=== PATIENT | male | born 1945 | race Caucasian/White ===

== ENCOUNTER 2017-10-09 17:36 | Emergency (ER) | payer OTHER, BC ==
[~2017-10-09] VITALS: Ht 180.3 cm; Wt 67.7 kg
[~2017-10-09 17:36] MED LIST: Levaquin PO; Ultram PO; Zestoretic,Prinzide PO
[2017-10-09 19:42] LABS: HEMATOCRIT 40.7 % (38.0-50.0); MCH 33.4 PG (29.0-34.0); MCHC 36.6 G/DL (30.0-36.0); MCV 91.3 FL (86-99); MEAN PLAT.VOLUME 9.4 uM^3 (9.0-12.4); PLATELET COUNT 238 K/uL (156-360); RBC DIS.WIDTH-CV 13.9 % (11.8-14.6); RBC DIS.WIDTH-SD 47.1 % (39-53); RED BLOOD COUNT 4.46 M/uL (4.00-5.50); WHITE BLOOD COUNT 16.3 K/uL (4.1-10.2)
[2017-10-09 19:55] LABS: CHLORIDE 91 mEq/L (99-109); POTASSIUM 4.1 mEq/L (3.7-5.4); SODIUM 123 mEq/L (136-147)
[2017-10-09 19:57] LABS: GLUCOSE 111 mg/dL (70-99)
[2017-10-09 19:59] LABS: ANION GAP 12 MEQ/L (2-14); TOTAL BILIRUBIN 0.6 mg/dL (0.0-1.0)
[2017-10-09 20:01] LABS: ALKALINE PHOSPHATASE 58 IU/L (3-129); GFR ESTIMATE (CALCULATED) > 59 mL/min/ (58.99-99999)
[2017-10-09 20:02] LABS: UREA NITROGEN (BUN) 10 mg/dL (9-23)
[2017-10-09 20:03] LABS: TROP-I INTERPRETATION NEGATIVE; TROPONIN-I < 0.01 ng/mL (0.0-0.30)
[2017-10-09 20:05] LABS: LIPASE 22 U/L (1.0-51.0)
[2017-10-09 21:30] VITALS: BP 122/67
== END 2017-10-09 21:32 | disposition home or self-care (01) ==
LOC: EME 17:36
PROVIDERS: Emergency Medicine
DX: E86.0 Dehydration (principal); R55 Syncope and collapse; R10.31 Right lower quadrant pain; R61 Generalized hyperhidrosis; R11.0 Nausea; R42 Dizziness and giddiness; I10 Essential (primary) hypertension; Z82.49 Family history of ischemic heart disease and other diseases of the circulatory system; F17.200 Nicotine dependence, unspecified, uncomplicated
CPT/HCPCS: 71020; 80048; 80053; 83690; 84484; 85027; 93005; 99281; 99284